=== PATIENT | female | born 1995 | race Caucasian/White ===

== ENCOUNTER → 2017-05-07 | Outpatient (CLI) | payer BC ==
--- NOTE | 2017-05-07 13:43 | DIAGNOSTIC IMAGING REPORT ---
RIGHT ELBOW 3 VIEWS HISTORY: RIGHT ELBOW FX COMPARISON: None. FINDINGS: Nondisplaced fracture at the radial head/neck junction. Small elbow effusion. No dislocation. No radiopaque foreign bodies. IMPRESSION: Nondisplaced radial head/neck fracture. Electronically signed by: Francis Disla M.D. 05/07/2017 1:42 PM Dictated Date/Time: 05/07/2017 1:40 PM
== END | disposition home or self-care (01) ==
LOC: C.RDSM 15:01
PROVIDERS: ATTEND Physician Assistant
DX: S52.124A Nondisplaced fracture of head of right radius, initial encounter for closed fracture (principal); X58.XXXA Exposure to other specified factors, initial encounter